=== PATIENT | female | born 1985 | race Caucasian/White ===

== ENCOUNTER 2016-12-17 22:10 | Emergency (ER) | payer OTHER ==
[~2016-12-17] VITALS: Ht 167.6 cm; Wt 57.2 kg
[~2016-12-17 22:10] MED LIST: BUPR100CR PO; DESE1CRE TOP
[2016-12-17 22:15] VITALS: BP 116/74; PULSE 85; RESP 14; TEMP 98.3; O2SAT 100
[2016-12-17] MEDS ORDERED: SODIUM CHLOR 0.9% 1000 ML INJ 1,000 ML IV ONE (22:45)
[2016-12-17] MEDS ORDERED: METOCLOPRAMIDE INJ 10 MG in SODIUM CHLORIDE 0.9% INJ 50 ML IV ONE (22:45)
[2016-12-17 22:53] LABS: GLUCOSE,URINE NEG (NEG); KETONE, URINE NEG (NEG); NITRITE,URINE NEG (NEG); PH, URINE 5.5 (5.0-8.5)
[2016-12-17 22:54] LABS: AUTOMATED NEUTROPHIL # 8.3 TH/MM3 (1.8-7.7); BASOPHIL # 0.4 TH/MM3 (0-0.2); BASOPHIL % 3.4 % (0.0-2.0); EOSINOPHIL # 0.2 TH/MM3 (0-0.4); EOSINOPHIL % 1.6 % (0.0-4.0); HEMATOCRIT 38.5 % (35.0-46.0); LYMPH % 20.2 % (9.0-44.0); LYMPHOCYTE # 2.5 TH/MM3 (1.0-4.8); MEAN CELL VOLUME 89.1 FL (80.0-100.0); MEAN CORPUSCULAR HGB CONC 35.9 % (32.0-36.0); MONO % 6.6 % (0.0-8.0); NEUT % 68.2 % (16.0-70.0); PLATELET COUNT 248 TH/MM3 (150-450); RED BLOOD COUNT 4.32 MIL/MM3 (4.00-5.30); RED CELL DISTRIBUTION WIDTH 11.7 % (11.6-17.2); WHITE BLOOD COUNT 12.2 TH/MM3 (4.0-11.0)
[2016-12-17 22:55] LABS: HEMO FLAGS DIFF FINAL
[2016-12-17 22:57] LABS: BLOOD, URINE MOD (NEG); URINE COLOR YELLOW (YELLW/STRAW)
[2016-12-17 22:58] LABS: BACTERIA, URINE MANY /hpf; COMMENT (UR) CULTURE INDICATED; CULTURE IF INDICATED CULTURE INDICATED; WBC, URINE 15-19 /hpf (0-5)
[2016-12-17 23:00] LABS: CHLORIDE 103 MEQ/L (98-107); POTASSIUM 3.5 MEQ/L (3.5-5.1); SODIUM (NA) 138 MEQ/L (136-145)
[2016-12-17 23:04] LABS: ANION GAP 9 MEQ/L (5-15); BICARBONATE 26.2 MEQ/L (21.0-32.0); BLOOD UREA NITROGEN 10 MG/DL (7-18)
[2016-12-17 23:07] LABS: ALT (GPT) 19 U/L (10-53); AST (GOT) 10 U/L (15-37); GLOMERULAR FILTRATION RATE 78 ML/MIN (>89)
[2016-12-17 23:08] LABS: TOTAL BILIRUBIN ADULT 0.3 MG/DL (0.2-1.0)
[2016-12-17 23:10] LABS: ALKALINE PHOSPHATASE 45 U/L (45-117)
[2016-12-17] MEDS ORDERED: MACR100C2 PO (23:18)
--- NOTE | 2016-12-17 23:18 | PD ---
HPI Chief Complaint: Outpatient Physical Therapist Problem/Complaint Time Seen by Provider: 22:18 Travel History International Travel<30 days: No Contact w/Intl Traveler<30days: No Traveled to known affect area: No History of Present Illness HPI Patient is a 31-year-old female, approximately 8 weeks , who comes in due to vaginal bleeding. She says that she has had lower abdominal cramping for the past few weeks, but it is recently gotten worse, specifically in her suprapubic area. She says that she was in bed tonight when she felt a ramirez of fluids, and noticed that she was bleeding. She says she has had occasional spotting, but nothing more than some pink fluid on the toilet paper in the past. She denies fever or chills. This is her fifth , she had 1 previous miscarriage at 8 weeks. She denies dizziness, shortness of breath, chest pain. PFSH Past Medical History Depression: Yes Diminished Hearing: No Influenza Vaccination: No ?: LMP: : 4 Para: 3 Miscarriage: 1 Past Surgical History Section: Yes (TIMES 2) Tonsillectomy: Yes Social History Alcohol Use: No Tobacco Use: No Substance Use: No Allergies-Medications (Allergen,Severity, Reaction): Coded Allergies: Floxcin (Verified Allergy, Severe, RASH, 12/17/16) Reported Meds & Prescriptions Reported Meds & Active Scripts Active No Active Prescriptions or Reported Medications Review of Systems Except as stated in HPI: all other systems reviewed are Neg General / Constitutional: No: Fever, Chills Eyes: No: Blurred Vision HENT: No: Headaches, Lightheadedness Cardiovascular: No: Chest Pain or Discomfort Respiratory: No: Shortness of Breath Gastrointestinal: Positive: Nausea, Abdominal Pain Genitourinary: Positive: Vaginal Bleeding Skin: No Rash, No Change in Pigmentation Neurologic: No: Weakness, Dizziness Physical Exam Narrative GENERAL: Awake and alert, in no acute distress. SKIN: Focused skin assessment warm/dry. HEAD: Atraumatic. Normocephalic. EYES: Pupils equal and round. No scleral icterus. ENT: Mucous membranes pink and moist. NECK: Trachea midline. No JVD. CARDIOVASCULAR: Regular rate and rhythm. No murmur appreciated. RESPIRATORY: No accessory muscle use. Clear to auscultation. Breath sounds equal bilaterally. GASTROINTESTINAL: Abdomen soft, nondistended. Tender to the suprapubic area. No rebound or guarding. : performed in the presence of a female nurse. Os is closed. Brown blood in the vaginal vault, slight amount of blood coming from the os. no CMT. MUSCULOSKELETAL: No obvious deformities. No clubbing. No cyanosis. No edema. NEUROLOGICAL: Awake and alert. No obvious cranial nerve deficits. Motor grossly within normal limits. Normal speech. PSYCHIATRIC: Appropriate mood and affect; insight and judgment normal. Data Data Last Documented VS Vital Signs Date Time Temp Pulse Resp B/P Pulse Ox O2 Delivery O2 Flow Rate FiO2 12/17/16 22:15 98.3 85 14 116/74 100 Orders Complete Blood Count With Diff (12/17/16 22:18) Comprehensive Metabolic Panel (12/17/16 22:18) Beta Hcg (Quant/Titer) (12/17/16 22:18) Urinalysis - C+S If Indicated (12/17/16 22:18) Ed Poc Ultrasound (12/17/16 ) Iv Access Insert/Monitor (12/17/16 22:31) Sodium Chlor 0.9% 1000 Ml Inj (Ns 1000 M (12/17/16 22:45) Metoclopramide Inj (Reglan Inj) (12/17/16 22:45) Urine Culture (12/17/16 22:40) Labs Laboratory Tests Test 12/17/16 22:40 White Blood Count 12.2 TH/MM3 Red Blood Count 4.32 MIL/MM3 Hemoglobin 13.8 GM/DL Hematocrit 38.5 % Mean Corpuscular Volume 89.1 FL Mean Corpuscular Hemoglobin 32.0 PG Mean Corpuscular Hemoglobin 35.9 % Concent Red Cell Distribution Width 11.7 % Platelet Count 248 TH/MM3 Mean Platelet Volume 8.5 FL Neutrophils (%) (Auto) 68.2 % Lymphocytes (%) (Auto) 20.2 % Monocytes (%) (Auto) 6.6 % Eosinophils (%) (Auto) 1.6 % Basophils (%) (Auto) 3.4 % Neutrophils # (Auto) 8.3 TH/MM3 Lymphocytes # (Auto) 2.5 TH/MM3 Monocytes # (Auto) 0.8 TH/MM3 Eosinophils # (Auto) 0.2 TH/MM3 Basophils # (Auto) 0.4 TH/MM3 CBC Comment DIFF FINAL Differential Comment Urine Color YELLOW Urine Turbidity SLIGHT Urine pH 5.5 Urine Specific Godley 1.015 Urine Protein NEG mg/dL Urine Glucose (UA) NEG mg/dL Urine Ketones NEG mg/dL Urine Occult Blood MOD Urine Nitrite NEG Urine Bilirubin NEG Urine Leukocyte Esterase TRACE Urine RBC 3-5 /hpf Urine WBC 15-19 /hpf Urine Squamous Epithelial 6-8 /hpf Cells Urine Bacteria MANY /hpf Microscopic Urinalysis Comment CULTURE INDICATED Sodium Level 138 MEQ/L Potassium Level 3.5 MEQ/L Chloride Level 103 MEQ/L Carbon Dioxide Level 26.2 MEQ/L Anion Gap 9 MEQ/L Blood Urea Nitrogen 10 MG/DL Creatinine 0.84 MG/DL Estimat Glomerular Filtration 78 ML/MIN Rate Random Glucose 84 MG/DL Calcium Level 9.1 MG/DL Total Bilirubin 0.3 MG/DL Aspartate Amino Transf 10 U/L (AST/SGOT) Alanine Aminotransferase 19 U/L (ALT/SGPT) Alkaline Phosphatase 45 U/L Total Protein 7.7 GM/DL Albumin 3.8 GM/DL [facility] Medical Decision Making Medical Screen Exam Complete: Yes Emergency Medical Condition: Yes Medical Record Reviewed: Yes Differential Diagnosis Threatened versus complete versus ectopic versus missed Narrative Course Patient is a 31-year-old female who comes in complaining of vaginal bleeding in . Exam shows some brown blood in the vaginal vault, os is closed. IV established, labs sent. Labs show a white blood cell count of 12, no other acute abnormalities. Urinalysis is positive for UTI. Bedside sono performed shows an IUP with appropriate heart rate. Patient given IV fluids and Reglan. She will be discharged with a prescription for Macrobid. She has been here previously, and her blood type is O+. She is advised to follow up with OB. Advised to return to the ED as needed for any worsening symptoms. Advised to avoid vigorous activity as well as sexual intercourse for the next few weeks. Procedures Procedure Narrative Emergency Department Pelvic ultrasound was performed with patient consent. The curvilinear probe was used in the transverse and sagittal views within the suprapubic region revealing single intrauterine . heart rate was 169. No free fluid in the pelvis. Diagnosis Primary Impression: Threatened Additional Impression: UTI (urinary tract infection) Qualified Code: N30.00 - Acute cystitis without hematuria Patient Instructions: General Instructions, Threatened Miscarriage (ED), Urinary Tract Infection in (ED) Additional Instructions: Drink plenty of fluids. Take all of your antibiotics. Follow-up with OB. Return to the ED as needed for any worsening symptoms. Scripts Nitrofurantoin Monohydrate Macrocrystals (Macrobid)100 Mg [id number] Mg PO BID 7 Days Ref 0 Prov:Karina Gunn MD 12/17/16 Disposition: 01 DISCHARGE HOME Condition: Stable Karina Gunn MD Dec 17, 2016 23:18
[2016-12-17 23:24] LABS: BETA HCG QUANT 170488 MIU/ML (0-5)
[2016-12-17 23:49] VITALS: BP 110/67
== END 2016-12-17 23:51 | disposition home or self-care (01) ==
LOC: PHED 22:10
DX: O20.0 Threatened abortion (principal); O23.11 Infections of bladder in pregnancy, first trimester; B96.89 Other specified bacterial agents as the cause of diseases classified elsewhere; N30.00 Acute cystitis without hematuria; Z3A.08 8 weeks gestation of pregnancy
CPT/HCPCS: 80053; 81001; 84702; 85025; 87077; 87086; 87186; 96374; 99285; J2765; J7030